=== PATIENT | male | born 1995 | race Caucasian/White ===

== ENCOUNTER 2018-03-14 10:33 | Inpatient (IN) | payer OTHER ==
[~2018-03-14] VITALS: Ht 167.6 cm; Wt 56.7 kg
--- NOTE | 2018-03-14 11:30 | NUR ---
Pre Assessment Pre Assessment completed in intake office on the first floor. Client is a 23 y/o male seeking treatment for his ETOH abuse. Pt. presents with some anxiety with an avoidant gaze but is pleasant upon approach. He appears clean and appropriately dressed. No signs of acute distress noted. Pt. stable to be admitted will complete assessment once on the unit.
--- NOTE | 2018-03-14 12:04 | NUR ---
Admission Assessment Pt. is a 23 y/o male being admitted for the medically managed withdrawal from ETOH. Pt. was also using cocaine concurrently with his alcohol abuse. Pt. is A/O X 4 and currently denies any SI, HI, VH, and AH. Pt. states that he usually drinks a 1.14L bottle of whiskey to himself throughout the day but will sometimes share that amount with a friend. Pt. states that he also uses cocaine along with his ETOH abuse but has not had any in 2 weeks. Current vital are BP: 117/73, P: 79, Tempt: 98.5, RR: 16, O2sat: 97%, and pt. is currently denying any pain. Substance Abuse Hx: ETOH (whiskey) 570ml-1140ml daily for the past 6 months. Patient first consumed alcohol at age 12. Last drink was around 0100 this morning. Pt. had 570 ml yesterday from 1700 to 0100 this morning. Longest period of Sobriety since age 12 has been 5 months while pt. was at boarding school from age [age]. Cocaine 1g daily for the past 6 months. Patient first consumed at age 18 and last consumed 0.3g approximately 2 weeks ago. Pt. states that he experienced a loss about 6 months ago that triggered his substance abuse. Pt. refused to discuss the specifics of his loss. Pt. states that hes never really attempted to get sober before but recently went to [facility] about a week ago as his first attempt at sobriety. Pt. was there for a total of 3 days, but left because he said that place was not a good fit for him. Since he left pt. went right back to drinking daily. [facility] Hx: [facility]: [facility]. Pt. was there for a total of 3 days. Pt. does not recall the medications given to him while at that facility. Pt. began drinking the day he was discharge from this facility. Pt. denies having any food or drug allergies. Pt. states that hes been diagnosed with depression, anxiety, and ADHD. Pt. denies having a PCP and/or a Psychiatrist. Pt. states that he does not have any home medication and that he does not take any medications at home. Pt. states that he wants to get sober for his mom and because he was recently convince that sobriety could be good for him. Pt. states that this will be his first real attempt at sobriety. He reports having had legal issues because of his alcohol abuse. Pt. reports having friends and family that will support his sobriety. Pt. states that his only potential cause for relapse is the loneliness of living alone in [place]. Pt. educated of admission process. Pt. educated on the units policies and procedures. Will continue to monitor pt.s behavior for safety.
[2018-03-14 13:54] LABS: *AMPHETAMINE, URINE NEGATIVE (NEGATIVE); *BARBITURATE, URINE NEGATIVE (NEGATIVE); *CANNABINOID, URINE POSITIVE (NEGATIVE); *COCCAINE, URINE NEGATIVE (NEGATIVE); *OPIATE, URINE NEGATIVE (NEGATIVE); *PHENCYCLIDINE SCREEN,URINE NEGATIVE (NEGATIVE)
[2018-03-14] MEDS ORDERED: DIAZEPAM 5 MG TABLET PO PRN (14:00)
[2018-03-14] MEDS ORDERED: MAGNESIUM HYDROXIDE 30 ML LIQUID UDC PO PRN (14:00)
[2018-03-14] MEDS ORDERED: DIAZEPAM 10 MG TABLET PO PRN ×2 (14:00)
[2018-03-14] MEDS ORDERED: ONDANSETRON ODT 4 MG TAB.RAPDIS SL PRN (14:00)
[2018-03-14] MEDS ORDERED: THIAMINE HCL 200 MG/2 ML VIAL IM ONE (14:00)
[2018-03-14] MEDS ORDERED: LORAZEPAM 2 MG/1 ML VIAL IM PRN (14:00)
[2018-03-14] MEDS ORDERED: 3 DAY TAPER OF VALIUM-SERENITY PROTOCOL PO PRN (14:00)
[2018-03-14] MEDS ORDERED: LOPERAMIDE HCL 2 MG CAPSULE PO PRN ×2 (14:00)
[2018-03-14] MEDS ORDERED: MAG HYDROX/AL HYDROX/SIMETH 30 ML LIQUID UDC PO PRN (14:00)
[2018-03-14] MEDS ORDERED: ONDANSETRON 4 MG/2 ML VIAL IM PRN (14:00)
[2018-03-14] MEDS ORDERED: diphenhydrAMINE 50 MG CAPSULE PO PRN (14:00)
[2018-03-14] MEDS: CLONIDINE HCL 0.1 MG TABLET PO PRN ×2 (14:52→23:44)
[2018-03-14] MEDS: DIAZEPAM 5 MG TABLET PO SCH ×3 (14:52→20:14)
--- NOTE | 2018-03-14 14:52 | NUR ---
PRN Medication Pt. in room complaining of elevated anxiety. PRN Clonidine medication given at this time. Will continue to monitor pt.'s behavior for safety and medication effectiveness.
--- NOTE | 2018-03-14 15:30 | NUR ---
PRN Re-Assessment Pt. in room and reports a decrease in symptoms. Medication effective. Will continue to monitor pt.'s behavior for safety.
[2018-03-14 16:00] VITALS: BP 127/86
--- NOTE | 2018-03-14 16:00 | NUR ---
CIWA Assessment CIWA of 11. Pt. in room presenting with anxiety, tremors, diaphoresis, agitation and restlessness. Pt. compliant with medication regiment and treatment plan. Will continue to monitor pt.'s behavior for safety.
--- NOTE | 2018-03-14 19:11 | NUR ---
START OF SHIFT NOTE: Endorsed patient is a 23 year old male presented for Alcohol (Whiskey) withdrawal, continues ordered 3 day Valium taper since 03/14/2018, which tolerated well. Withdrawal symptoms will be monitoring closely. Patient is alert and oriented x4: Person, Place, Situation, and Time, noted with anxious mood and flat affect, reports NKA, Regular Diet, is on Full Code, Seizure and Fall Precautions. PMH: Anxiety, Depression, and ADHD. Last CIWA=11 at 1600: Throughout the day shift patient experienced following withdrawal symptoms such as anxiety, agitation, depression, irritability, nervousness, nasal congestion, bilateral tremors, sweating, restlessness, fatigue, and yawning. PRN Clonidine 0.1 mg PO administrated for anxiety at 1452, and was effective per outgoing day shift nurse report. Patient remains compliant with treatment, medications, and diet regimen. VSWNL. Respirations are unlabored and even, Abdomen is soft and non-tender, Bowel Sounds are active in all four quadrants, Skin is intact, warm and dry to touch. Encouraged to intake fluids as tolerated. Encouraged to attend group activities. All needs met. Safe and calm environment provided. Safety measures in place: Call light within reach, bed in lowest position, and locked, padded bed rails up bilaterally. Will continue to monitor closely.
--- NOTE | 2018-03-14 19:11 | NUR ---
End of Shift Pt. is a 23 y/o male admitted for the medically managed withdrawal from ETOH. Pt. was also using cocaine concurrently with his alcohol abuse. Pt. was placed on a 3 day valium taper to manage his withdrawal symptoms. Pt. presented with anxiety, agitation, diaphoresis and tremors. PRN clonidine given to manage withdrawal symptoms. Safety measures in place. Will endorse pt.'s care to oncoming shift.
[2018-03-14 20:00] VITALS: BP 109/70
--- NOTE | 2018-03-14 20:00 | NUR ---
CIWA ASSESSMENT CIWA=13: Patient presented with withdrawal symptoms such as anxiety, agitation, depression, irritability, nervousness, bilateral tremors, barely sweating, restlessness, and fatigue. Scheduled and PRN medications will be administrated as ordered. Safe and calm environment provided. Encouraged to intake fluids as tolerated. All needs met. Safety measures in place: Call light within reach, bed in lowest position, and locked, padded bed rails up bilaterally. Will continue to monitor closely.
--- NOTE | 2018-03-14 20:14 | NUR ---
PRN BENADRYL PO ADMINISTRATION: PRN Benadryl 50 mg PO administrated for insomnia at 2013, as ordered. Patient tolerated well. Re-assessment will be done in one hour. Encouraged to intake fluids as tolerated. Safe and calm environment provided. All needs met. Safety measures in place: Call light within reach, bed is in lowest position, and locked, padded bedrails up bilaterally. Will continue to monitor.
--- NOTE | 2018-03-14 21:14 | NUR ---
PRN RE-ASSESSMENT Patient is sleeping. RR:15. Respirations are even and unlabored. PRN Benadryl 50 mg PO administrated for insomnia at 2014 were effective. Safe and calm environment provided. All needs met. Safety measures in place: Call light within reach, bed is in lowest position, and locked, padded bedrails up bilaterally. Will continue to monitor.
[2018-03-14 21:16] LABS: BASOPHILS # (AUTO) 0.1 K/uL (0.0-8.0); BASOPHILS % (AUTO) 1.2 % (0.0-2.0); EOSINOPHILS # (AUTO) 0.5 K/uL (0.0-0.7); EOSINOPHILS % (AUTO) 7.5 % (0.0-7.0); HEMATOCRIT 41.2 % (36.7-47.1); HEMOGLOBIN 14.3 g/dL (12.5-16.3); LYMPHOCYTES % (AUTO) 27.5 % (20.5-51.5); MEAN CORPUSCULAR HEMOGLOBIN 32.9 uug (23.8-33.4); MEAN CORPUSCULAR HGB CONC 35 g/dL (32.5-36.3); MEAN CORPUSCULAR VOLUME 94.4 fL (73.0-96.2); MONOCYTES # (AUTO) 0.7 K/uL (2.0-10.0); MONOCYTES % (AUTO) 10.4 % (0.0-11.0); NEUTROPHILS # (AUTO) 3.8 K/uL (1.8-8.9); NEUTROPHILS % (AUTO) 53.4 % (38.5-71.5); PLATELET COUNT (AUTO) 224 K/uL (152-348); RED BLOOD CELL COUNT(AUTO) 4.36 MIL/uL (4.06-5.63); WHITE BLOOD COUNT (AUTO) 7.1 K/uL (3.6-10.2)
[2018-03-14 21:26] LABS: ETHANOL < 3 MG/DL (0-0)
[2018-03-14 21:30] LABS: ALANINE AMINOTRANSFERASE 27 U/L (16-63); ALKALINE PHOSPHATASE 83 U/L (50-136); AMYLASE 107 U/L (25-115); ASPARTATE AMINOTRANSFERASE 21 U/L (15-37); BILIRUBIN,TOTAL 0.3 mg/dL (0.2-1.0); CARBON DIOXIDE 30 mmol/L (21-32); CHLORIDE 103 mmol/L (98-107); CREATININE 1.1 mg/dL (0.6-1.3); GLUCOSE 98 mg/dL (74-106); LIPASE 169 U/L (73-393); MAGNESIUM 1.9 mg/dL (1.8-2.4); UREA NITROGEN, BLOOD 14 mg/dL (7-18)
[2018-03-14 21:51] LABS: THYROID STIMULATING HORMONE 3.168 mIU/mL (0.358-3.740)
--- NOTE | 2018-03-14 23:08 | NUR ---
PRN VALIUM PO ADMINISTRATION: PRN Valium 10 mg PO administrated for CIWA=15 at 2308, as ordered. Patient tolerated well. Re-assessment will be done in one hour. Encouraged to intake fluids as tolerated. Safe and calm environment provided. All needs met. Safety measures in place: Call light within reach, bed is in lowest position, and locked, padded bedrails up bilaterally. Will continue to monitor.
--- NOTE | 2018-03-14 23:10 | NUR ---
PRN ZOFRAN SL ADMINISTRATION: PRN Zofran 4 mg SL administrated for nausea at 2310, as ordered. Patient tolerated well. Re-assessment will be done in one hour. Safe and calm environment provided. All needs met. Safety measures in place: Call light within reach, bed is in lowest position, and locked, padded bedrails up bilaterally. Will continue to monitor.
[2018-03-14] MEDS: IBUPROFEN 600 MG TABLET PO PRN (23:17)
--- NOTE | 2018-03-14 23:17 | NUR ---
PRN MOTRIN PO ADMINISTRATION: PRN Motrin 600 mg PO administrated for generalized body pain at 2317, as ordered. Patient tolerated well. Re-assessment will be done in one hour. Encouraged to intake fluids as tolerated. Safe and calm environment provided. All needs met. Safety measures in place: Call light within reach, bed is in lowest position, and locked, padded bedrails up bilaterally. Will continue to monitor.
--- NOTE | 2018-03-14 23:44 | NUR ---
PRN CLONIDINE PO ADMINISTRATION: PRN Clonidine 0.1 mg PO administrated for agitation at 2344, as ordered. Patient tolerated well. Re-assessment will be done in one hour. Encouraged to intake fluids as tolerated. Safe and calm environment provided. All needs met. Safety measures in place: Call light within reach, bed is in lowest position, and locked, padded bedrails up bilaterally. Will continue to monitor.
[2018-03-15] VITALS: BP 119/60
--- NOTE | 2018-03-15 | NUR ---
CIWA ASSESSMENT CIWA=14: Patient experienced anxiety, agitation, emotional liability, irritability, nervousness, flashed face, myalgia, generalized body aches, mild nausea, headache, abdominal cramps, sweating, bilateral tremors, fatigue, and restlessness. PRN medications will be administrated, as ordered. Safe and calm environment provided. All needs met. Safety measures in place: Call light within reach, bed is in lowest position, and locked, padded bedrails up x2. Will continue to monitor.
--- NOTE | 2018-03-15 00:08 | NUR ---
PRN RE-ASSESSMENT CIWA=11. Patient verbalized, " I am feeling less anxious: Valium reduced my anxiety ". PRN Valium 10 mg PO administrated for CIWA=15 at 2308 was effective. Safe and calm environment provided. All needs met. Safety measures in place: Call light within reach, bed is in lowest position, and locked, padded bedrails up bilaterally. Will continue to monitor.
--- NOTE | 2018-03-15 00:10 | NUR ---
PRN RE-ASSESSMENT Patient reports, " My nausea gone ". PRN Zofran 4 mg SL administrated for nausea at 2310 was effective. Safe and calm environment provided. All needs met. Safety measures in place: Call light within reach, bed is in lowest position, and locked, padded bedrails up bilaterally. Will continue to monitor.
--- NOTE | 2018-03-15 00:17 | NUR ---
PRN RE-ASSESSMENT Patient reports, " My pain level decreased from "8/10" to "4/10 PRN Motrin 600 mg PO administrated for generalized body pain at 2317 was effective. Safe and calm environment provided. All needs met. Safety measures in place: Call light within reach, bed is in lowest position, and locked, padded bedrails up bilaterally. Will continue to monitor.
--- NOTE | 2018-03-15 00:44 | NUR ---
PRN RE-ASSESSMENT Patient is sleeping. RR:15. PRN Clonidine 0.1 mg PO administrated for agitation at 2344 was effective. Safe and calm environment provided. All needs met. Safety measures in place: Call light within reach, bed is in lowest position, and locked, padded bedrails up bilaterally. Will continue to monitor.
--- NOTE | 2018-03-15 04:00 | NUR ---
VS REFUSED, CIWA DEFERRED VS refused and CIWA deferred at 0400 due patient sleeping. Respirations are unlabored and even. RR:14. Assessment will be done and CIWA scored while patient will awake. Safe and calm environment provided. All needs met. Safety measures in place: Call light within reach, bed is in lowest position, and locked, padded bedrails up bilaterally. Will continue to monitor.
--- NOTE | 2018-03-15 07:30 | NUR ---
Start of Shift Pt. is 23 y/o male admitted for the medically managed withdrawal from ETOH. Pt. was also concurrently using cocaine alongside his alcohol abuse. Pt. was placed on a 3 day valium taper to manage withdrawal symptoms. Endorse from previous shift pt. presented with anxiety, diaphoresis, agitation, restlessness, nausea, body aches, and tremors. Pt. received PRN Valium, Benadryl, Zofran, Motrin, and Clonidine to help manage withdrawal symptoms. Received pt. in room. Pt. in bed with eyes closed. Pt.s room is cluttered with open food containers, personal items, and linens. No signs of SOB noted. Safety measures in place. Will continue to monitor pt.s behavior for safety.
--- NOTE | 2018-03-15 07:31 | NUR ---
END OF SHIFT NOTE: This report given for patient, a 23 year old male, presented for Alcohol (Whiskey) withdrawal, continues ordered 3 day Valium taper since 03/14/2018, which tolerated well. Withdrawal symptoms will be monitoring closely. Patient is alert and oriented x4, cooperative, with stable gate, anxious mood and liable affect. CIWA=13 at 2000. The most recent CIWA=14 at 0000: Patient presented with anxiety, agitation, emotional liability, irritability, nervousness, flashed face, myalgia, generalized body aches, mild nausea, headache, abdominal cramps, sweating, bilateral tremors, fatigue, and restlessness PRN Benadryl 50 mg PO administrated for insomnia at 2013, PRN Valium 10 mg PO administrated for 2307, PRN Zofran 4 mg SL administrated for nausea at 231, PRN Motrin 600 mg PO administrated for generalized body pain at 2317, PRN Clonidine 0.1 mg PO administrated for agitation at 2344, and were effective. Patient remains compliant with treatment, medications, and diet regimen. Respirations are unlabored and even. Skin is intact, warm and dry to touch Encouraged patient to verbalized his feelings. Encouraged to intake fluids as tolerated. Encouraged to attend group activities. Patient slept for 5 hours, intake 355 ml, voided x1. Safe and calm environment provided. All needs met. Safety measures in place: Call light within reach, bed is in lowest position, and locked, padded bedrails up bilaterally. Endorsed to day shift nurse.
[2018-03-15 08:00] VITALS: BP 84/46
--- NOTE | 2018-03-15 08:00 | NUR ---
CIWA Assessment CIWA of 12. Pt. in room presenting with anxiety, stomach cramps, anxiety, diaphoresis and agitation. Will give medication regiment as ordered. Will continue to monitor pt.'s behavior for safety.
[2018-03-15] MEDS ORDERED: TUBERCULIN,PURIF.PROT.DERIV. 5 TU/0.1 ML TEST ID ONE (09:00)
[2018-03-15] MEDS: MULTIVITAMINS,THERAPEUTIC TABLET PO SCH (09:07)
[2018-03-15] MEDS: FOLIC ACID 1 MG TABLET PO SCH (09:07)
[2018-03-15] MEDS: HYDROXYZINE PAMOATE 25 MG CAPSULE PO PRN ×2 (09:07→22:43)
[2018-03-15] MEDS: THIAMINE HCL 100 MG TABLET PO SCH (09:07)
[2018-03-15] MEDS: DIAZEPAM 5 MG TABLET PO SCH ×2 (09:07→21:14)
[2018-03-15] MEDS: DICYCLOMINE HCL 20 MG TABLET PO PRN ×2 (09:08→21:15)
--- NOTE | 2018-03-15 09:08 | NUR ---
PRN Medication Pt. in room complaining of increased anxiety and stomach cramps. PRN Bentyl and Vistaril given at this time manage withdrawal symptoms. Will continue to monitor pt.'s behavior for safety and medication effectiveness.
--- NOTE | 2018-03-15 10:30 | NUR ---
PRN Re-Assessment Pt. reports a decrease in symptoms. Medication effective. Will continue to monitor pt.'s behavior for safety.
[2018-03-15 12:00] VITALS: BP 98/47
--- NOTE | 2018-03-15 12:00 | NUR ---
CIWA Assessment CIWA of 11. Pt. in room presenting with anxiety, anxiety, diaphoresis and agitation. Pt. compliant with medication regiment and treatment plan. Will continue to monitor pt.'s behavior for safety.
--- NOTE | 2018-03-15 13:59 | NUR ---
therapist prompted client to attend group therapy.
[2018-03-15] MEDS ORDERED: TRAZODONE 50 MG TABLET PO PRN (14:00)
[2018-03-15] MEDS: GABAPENTIN 300 MG CAPSULE PO SCH ×2 (14:10→17:00)
[2018-03-15] MEDS: CLONIDINE HCL 0.1 MG TABLET PO PRN ×2 (14:10→21:15)
--- NOTE | 2018-03-15 14:10 | NUR ---
PRN Medication Pt. in room complaining of increased anxiety. PRN Clonidine given at this time to manage anxiety. Will continue to monitor pt.'s behavior for safety.
[2018-03-15] MEDS: ERYTHROMYCIN 0.5% OPHT OINT 3.5 GM TUBE LEFTEYE SCH (14:35)
--- NOTE | 2018-03-15 15:00 | NUR ---
PRN Re-Assessment Pt. reports a decrease in anxiety. Medication effective. Will continue to monitor pt.'s behavior for safety.
[2018-03-15 16:00] VITALS: BP 119/63
--- NOTE | 2018-03-15 16:00 | NUR ---
CIWA Assessment CIWA of 10. Pt. in room presenting with anxiety, anxiety, diaphoresis and agitation. Pt. compliant with medication regiment and treatment plan. Will continue to monitor pt.'s behavior for safety.
[2018-03-15] MEDS: IBUPROFEN 600 MG TABLET PO PRN (18:15)
--- NOTE | 2018-03-15 18:15 | NUR ---
PRN Medication Pt. approached nursing station and reports 6/10 left eye pain. PRN Motrin given at this time to mange pain. Will continue to monitor pt.'s behavior for safety and medication effectiveness.
--- NOTE | 2018-03-15 18:52 | NUR ---
PRN Re-Assessment Pt. reports a decrease in pain. Medication effective. Will continue to monitor pt.'s behavior for safety.
--- NOTE | 2018-03-15 19:02 | NUR ---
START OF SHIFT NOTE: This report received for patient, is a 23 year old male, presented for alcohol (Whiskey) withdrawal, and continues ordered 3 day Valium Taper, which tolerated well. Last CIWA=10 at 1600: The patient noted with withdrawal symptoms such as anxiety, agitation, depression, fatigue, irritability, generalized body aches, abdominal spasm, myalgia, nervousness, restlessness, bilateral tremors, and sweating. Withdrawal symptoms will be closely monitoring. PRN Bentyl 20 mg PO administered for abdominal spasm at 0908, PRN Vistaril 50 mg Po administered for anxiety at 0907, PRN Clonidine 0.1 mg PO administered for anxiety and agitation at 1410, PRN Motrin 600 mg PO administered for generalized body pain at 1815, and were effective, per day shift nurse report. Patient remains compliant with treatment, medications, and diet regimen. Respirations are even and unlabored. Skin intact, warm, and dry to touch. Encouraged to fluids intake as tolerated. Encouraged to attend group activities. All needs met. Safety measures in place: Call light within reach, bed is locked, and in the lowest position, and padded bedrails up x2. Safe and calm environment provided. Endorsed by day shift nurse. Will continue to monitor closely.
--- NOTE | 2018-03-15 19:02 | NUR ---
End of Shift Pt. is 23 y/o male admitted for the medically managed withdrawal from ETOH. Pt. was also concurrently using cocaine alongside his alcohol abuse. Pt. was placed on a 3 day valium taper to manage withdrawal symptoms. Throughout shift pt. presented with anxiety, diaphoresis, agitation, restlessness, left eye pain, body aches, and tremors. Pt. received PRN Bentyl, Vistaril, Motrin, and Clonidine to help manage withdrawal symptoms. After further assessment by pt. was ordered an ophthalmic antibiotic for possible infection after pt. reported left eye pain and irritation. No redness, irritation, swelling, and/or foreign body found by this sba underwriter. Safety measures in place. Will endorse pt.s care to oncoming shift.
[2018-03-15 20:00] VITALS: BP 118/69
--- NOTE | 2018-03-15 20:00 | NUR ---
CIWA ASSESSMENT CIWA=10: The patient presented with withdrawal symptoms such as anxiety, agitation, depression, fatigue, irritability, spasm, nervousness, restlessness, bilateral tremors, and sweating. Safe and calm environment provided. Encouraged to intake fluids as tolerated. All needs met. Safety measures in place: Call light within reach, bed in lowest position, and locked, padded bed rails up bilaterally. Will continue to monitor closely. Addendum: 03/16/18 at 0544 by MARANDA SILVA RN abdominal spasm
--- NOTE | 2018-03-15 21:15 | NUR ---
PRN BENTYL PO, PRN CLONIDINE PO, PRN TRAZODONE PO, ADMINISTRATION: PRN Bentyl 20 mg PO administered for abdominal spasm at 2114, PRN Clonidine 0.1 mg PO administered for anxiety and agitation at 2114, and PRN Trazodone 50 mg PO administered for insomnia at 2114, as ordered. Patient tolerated well. Re-assessment will be done in one hour. Encouraged to intake fluids as tolerated. Safe and calm environment provided. All needs met. Safety measures in place: Call light within reach, bed is in lowest position, and locked, padded bedrails up bilaterally. Will continue to monitor.
--- NOTE | 2018-03-15 22:15 | NUR ---
PRN RE-ASSESSMENT Patient verbalized, "My abdominal spasm gone, but I can't sleeping, my anxiety did not relief". PRN Bentyl 20 mg PO administered for abdominal spasm at 2114 was effective, PRN Clonidine 0.1 mg PO administered for anxiety and agitation at 2114, and PRN Trazodone 50 mg PO administered for insomnia at 2114 were not effective. Safe and calm environment provided. All needs met. Safety measures in place: Call light within reach, bed is in lowest position, and locked, padded bedrails up bilaterally. Will continue to monitor.
--- NOTE | 2018-03-15 22:43 | NUR ---
PRN VISTARILPO ADMINISTRATION: PRN Vistaril 50 mg PO administrated for anxiety at 2243, as ordered. Patient tolerated well. Re-assessment will be done in one hour. Encouraged to intake fluids as tolerated. Safe and calm environment provided. All needs met. Safety measures in place: Call light within reach, bed is in lowest position, and locked, padded bedrails up bilaterally. Will continue to monitor.
--- NOTE | 2018-03-15 23:43 | NUR ---
PRN RE-ASSESSMENT Patient is sleeping. RR:14. Respirations are even and unlabored PRN Vistaril 50 mg PO administered for anxiety at 2243 was effective. Safe and calm environment provided. All needs met. Safety measures in place: Call light within reach, bed is in lowest position, and locked, padded bedrails up bilaterally. Will continue to monitor.
[2018-03-16] MEDS: ERYTHROMYCIN 0.5% OPHT OINT 3.5 GM TUBE LEFTEYE SCH ×4 (06:00→17:24)
[2018-03-16 06:06] LABS: HEPATITIS B SURFACE AG Negative (Negative)
--- NOTE | 2018-03-16 06:56 | NUR ---
START OF SHIFT NOTE: Endorsed patient, a 23 year old male, continues ordered for medical supervised withdrawal from ETOH (Whiskey) 3 day Valium Taper, which tolerated well. Withdrawal symptoms was closely monitored. The patient noted with anxious mood and liable affect. The most recent CIWA=10 at 1999: The patient experienced following withdrawal symptoms such as anxiety, agitation, depression, fatigue, irritability, abdominal spasm, nervousness, myalgia, restlessness, bilateral tremors, and sweating. PRN Bentyl 20 mg PO administered for abdominal spasm at 2114 was effective. PRN Clonidine 0.1 mg PO administered for anxiety and agitation at 2114, and PRN Trazodone 50 mg PO administered for insomnia at 2114 were not effective. PRN Vistaril 50 mg PO administered for anxiety at 2242 was effective. Patient remains compliant with treatment, medications, and diet regimen. VSWNL. Respirations are even and unlabored. Skin is intact, warm, and dry to touch. Encouraged patient to verbalized her feelings, and reassuring provided. Encouraged to intake fluids as tolerated. Encouraged to attend group activities. Patient slept for 6 hours, intake 400 ml, voided x2. Safe and calm environment provided. All needs met. Safety measures in place: Call light within reach, bed is in lowest position, and locked, padded bedrails up bilaterally. Endorsed to day shift nurse. Addendum: 03/16/18 at 0704 by MARANDA SILVA RN error: END SHIFT NOTE
--- NOTE | 2018-03-16 07:20 | NUR ---
Start Of Shift Patient is a 23yr old male who was admitted to [facility] on 03/14/18 for a medically supervised withdrawal from ETOH ( Whisky) and also stated he was abusing Cocaine. He has been placed on a 3 day Valium taper and this is day 3. PRN medications given on PM shift : Bentyl, Clonidine, Trazodone and Vistaril, he slept for 6+ hours and last CIWA was 10. Currently he is in bed asleep at this time, breathing even and unlabored, side rails up x 2 and call light within reach. Continue to follow MD plan of care and offer support and encouragement.
[2018-03-16 08:00] VITALS: BP 97/51
[2018-03-16] MEDS ORDERED: DIAZEPAM 5 MG TABLET PO SCH (09:00)
--- NOTE | 2018-03-16 09:00 | NUR ---
CIWA 10 Pt. presents with anxiety, anxiety, diaphoresis and agitation. Schedule Valium 5 mg PO given
[2018-03-16] MEDS: MULTIVITAMINS,THERAPEUTIC TABLET PO SCH (09:05)
[2018-03-16] MEDS: FOLIC ACID 1 MG TABLET PO SCH (09:05)
[2018-03-16] MEDS: THIAMINE HCL 100 MG TABLET PO SCH (09:05)
[2018-03-16] MEDS: GABAPENTIN 300 MG CAPSULE PO SCH ×3 (09:05→17:22)
[2018-03-16] MEDS: HYDROXYZINE PAMOATE 25 MG CAPSULE PO PRN (11:41)
[2018-03-16] MEDS: IBUPROFEN 600 MG TABLET PO PRN (11:41)
--- NOTE | 2018-03-16 11:45 | NUR ---
PRN Motrin 600mg PO given for headache Vistaril 50mg PO given for increased anxiety/agitation
[2018-03-16 12:00] VITALS: BP 99/57
--- NOTE | 2018-03-16 12:21 | NUR ---
ELLAWA 14 Patient presents with headache, increased anxiety, irritability, decreased appetite and restlessness PRN Motrin 600mg PO and Vistaril 50mg PO given along with scheduled 300mg PO gabapentin
--- NOTE | 2018-03-16 12:45 | NUR ---
PRN Reassess Patient states headache pain is now 2/10 ( was 6/10) Anxiety has decreased, Vistaril 50mg PO effective
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
[2018-03-16] MEDS: QUETIAPINE FUMARATE 100 MG TABLET PO PRN (14:52)
--- NOTE | 2018-03-16 14:55 | NUR ---
PRN Seroquel Seroquel 100mg PO PRN given for agitation and increased irritability per MD order.
[2018-03-16] MEDS ORDERED: HYDR-3895 PO (15:52)
[2018-03-16] MEDS ORDERED: IBUP-1955 PO (15:52)
[2018-03-16] MEDS ORDERED: ERYT3.5O24 LEFTEYE (15:52)
[2018-03-16] MEDS ORDERED: GABA-534 PO (15:52)
[2018-03-16] MEDS ORDERED: QUET100T PO (15:52)
[2018-03-16] MEDS ORDERED: CLON0.1T14 PO (15:52)
[2018-03-16] MEDS ORDERED: TRAZ-213 PO (15:52)
[2018-03-16] MEDS ORDERED: DICY20TA28 PO (15:52)
--- NOTE | 2018-03-16 15:55 | NUR ---
PRN Reassess Patient has calmed down, he is in group at this time and states he feels better and apologizes for his behavior.
[2018-03-16 16:00] VITALS: BP 140/88
--- NOTE | 2018-03-16 16:15 | NUR ---
CIWA 14 Patient presents with headache, increased anxiety, irritability, agitation, decreased appetite and restlessness PRN Seroquel 100mg PO PRN was given @ 1500 with positive results for agitation.
[2018-03-16] MEDS: CLONIDINE HCL 0.1 MG TABLET PO PRN (17:24)
--- NOTE | 2018-03-16 17:25 | NUR ---
PRN Clonidine 0.1mg PO given for increased anxiety/irritability will reassess
--- NOTE | 2018-03-16 18:25 | NUR ---
PRN Reassess patient appears less anxious and states he feels better
--- NOTE | 2018-03-16 18:49 | NUR ---
End Of Shift Patient is a 23yr old male who was admitted to [facility] on 03/14/18 for a medically supervised withdrawal from ETOH ( Whisky) and also stated he was abusing Cocaine. He has completed a 3 day Valium taper and will be discharged in the AM 03/17/18 to " [facility]. PRN medications given on this shift: Motrin, Vistaril, Clonidine and Seroquel. His last CIWA was 14 @ 1600. He had a fluid intake of 2814 ML, 3 Voids and 0 BM. His withdrawal symptoms have presented as emotional volatility, increased anxiety, agitation, lethargy, restlessness and headaches. He attended groups today and is interacting with his peers. Continue to follow MD plan of care and offer support. Endorsed to night
--- NOTE | 2018-03-16 18:52 | NUR ---
START OF SHIFT NOTE: Endorsed patient, a 23 old male, completed ordered 3 Day Valium Taper for ETOH (Whiskey) withdrawal, which tolerated well. The patient remains compliant with treatment, medications, and diet regimen. Upon endorsement, patient is alert and oriented x 4, noted with anxious mood and labile affect. Latest CIWA=14 at 1600: During the day patient continues experienced moderate withdrawal symptoms such as anxiety, agitation, irritability, nervousness, restlessness, bilateral tremors, generalized body pain, sweating, mild dizzy/lightheaded, and fatigue. 1:1 sitter for safety was at bedside, per MD's order till 1600. PRN Motrin 600 mg PO administered for pain at 1141, PRN Vistaril 50 mg PO administered for anxiety at 1141, PRN Seroquel 100 mg PO administered for agitation at 1452, PRN Clonidine 0.1 mg PO administered for anxiety and agitation at 1724, and were effective, per outgoing day shift nurse. Respirations are even and unlabored. Abdomen is soft and non-tender, bowel sounds are active in all four quadrants. Skin remains intact, warm, and dry to touch. Educated for relaxation techniques, and expressing his feelings. Patient returned his knowledge back by verbalized understanding. Encouraged to intake fluids as tolerated. Encouraged to attend group activities. The patient scheduled for discharging to "[facility]" tomorrow at 0930. Safe and calm environment provided. All needs met. Safety measures in place; Call light within reach, bed in lowest position, and locked, padded bedrails up x2. Endorsed by day shift nurse. Will continues to monitor closely.
[2018-03-16 20:00] VITALS: BP 105/59
--- NOTE | 2018-03-16 20:00 | NUR ---
CIWA ASSESSMENT CIWA=13 at 2000: Patient presented with anxiety, agitation, depression, irritability, nervousness, bilateral tremors, and restlessness. Educated for relaxation techniques, and expressing his feelings. Patient returned his knowledge back by verbalized understanding. Encouraged to intake fluids as tolerated. Encouraged to attend group activities. Safe and calm environment provided. All needs met. Safety measures in place: Call light within reach, bed in lowest position, and locked, padded bedrails up x2. Will continues to monitor closely.
--- NOTE | 2018-03-17 | NUR ---
CIWA ASSESSMENT CIWA=13 at 0000: The patient experienced anxiety, agitation, depression, irritability, nervousness, bilateral tremors, and restlessness. Safe and calm environment provided. All needs met. Safety measures in place: Call light within reach, bed in lowest position, and locked, padded bedrails up x2. Will continues to monitor closely.
[2018-03-17] MEDS: QUETIAPINE FUMARATE 100 MG TABLET PO PRN (01:53)
--- NOTE | 2018-03-17 01:53 | NUR ---
PRN SEROQUEL PO ADMINISTRATION: PRN Seroquel 100 mg PO administrated for agitation at 0153, as ordered. Patient tolerated well. Re-assessment will be done in one hour. Encouraged to intake fluids as tolerated. Safe and calm environment provided. All needs met. Safety measures in place: Call light within reach, bed is in lowest position, and locked, padded bedrails up bilaterally. Will continue to monitor.
--- NOTE | 2018-03-17 02:53 | NUR ---
PRN RE-ASSESSMENT Patient is sleeping. Respirations are even and unlabored. PRN Seroquel 100 mg PO administrated for agitation at 0153 was effective. Safe and calm environment provided. All needs met. Safety measures in place: Call light within reach, bed is in lowest position, and locked, padded bedrails up bilaterally. Will continue to monitor.
--- NOTE | 2018-03-17 04:00 | NUR ---
VS REFUSED, CIWA DEFERRED VS refused and CIWA deferred at 0400 due patient sleeping. Assessment will be done and CIWA scored while patient will awake. Safe and calm environment provided. All needs met. Safety measures in place: Call light within reach, bed is in lowest position, and locked, padded bedrails up bilaterally. Will continue to monitor.
[2018-03-17] MEDS: ERYTHROMYCIN 0.5% OPHT OINT 3.5 GM TUBE LEFTEYE SCH ×2 (06:00)
--- NOTE | 2018-03-17 07:03 | NUR ---
END OF SHIFT NOTE: Report given for patient, a 23 year old male, presented for Alcohol (Whiskey) withdrawal, and completed ordered 3 day Valium taper. Patient tolerated well, and remains compliant with treatment, medications, and diet regimen. Withdrawal symptoms was monitored closely. The patient scheduled for discharging to "[facility]" today at 0930. CIWA=13 at 2000. The most recent CIWA=13 at 0000: Patient presented with anxious mood and liable affect, noted disheveled, unkempt, and with uncombed hair, and experienced anxiety, agitation, emotional liability, irritability, nervousness, flashed face, myalgia, generalized body aches, mild nausea, headache, abdominal cramps, sweating, bilateral tremors, fatigue, and restlessness. PRN Seroquel 100 mg PO administrated for agitation at 0153, and was effective. Respirations are unlabored and even. Skin is intact, warm and dry to touch. Encouraged to intake fluids as tolerated. Encouraged to attend group activities. Patient slept for 9 hours, intake 855 ml, voided x1. Safe and calm environment provided. All needs met. Safety measures in place: Call light within reach, bed is in lowest position, and locked, padded bedrails up bilaterally. Endorsed to day shift nurse.
[2018-03-17 08:00] VITALS: BP 91/59
--- NOTE | 2018-03-17 08:00 | NUR ---
Start of Shift Notes/CIWA Assessment: Received report from night nurse. Patient is a 23 year old male admitted for ETOH withdrawal who was placed on a 3-day Valium taper as ordered. No adverse reactions noted. Per night report, patient was given Seroquel during the night. Last CIWA 13. Received patient in his room. Alert and oriented x 4. Appears disheveled. Room is messy with garbage noted all over the floor. Encouraged patient to maintain his personal hygiene and space. He appears anxious, worried and complains of fatigue and generalized discomfort. CIWA 9. Patient will be discharging today to [facility]. Educated patient on his current plan of care regarding the discharge process. Verbalized good understanding of all teachings. All needs met and attended. Will continue to monitor closely.
[2018-03-17] MEDS: FOLIC ACID 1 MG TABLET PO SCH (08:20)
[2018-03-17] MEDS: GABAPENTIN 300 MG CAPSULE PO SCH (08:20)
[2018-03-17] MEDS: MULTIVITAMINS,THERAPEUTIC TABLET PO SCH (08:21)
[2018-03-17] MEDS: THIAMINE HCL 100 MG TABLET PO SCH (08:21)
--- NOTE | 2018-03-17 09:44 | NUR ---
Discharged: Patient's VS stable. CIWA 9. Denies S/I or H/I noted. No AV hallucinations noted. Patient education provided regarding patient's discharge instructions. All questions answered. Returned all belongings to the patient at this time. Escorted off the unit by PALS NURSE. Picked up by [facility] to be transported to [facility]
== END 2018-03-17 09:44 | disposition other institution (70) | DRG 895 ==
LOC: SRC 11:14
PROVIDERS: ADMIT Family Medicine Addiction Medicine; ATTEND Family Medicine Addiction Medicine
PROC: HZ2ZZZZ Detoxification Services for Substance Abuse Treatment (ICD-10-PCS; principal; 2018-03-14)
PROC: HZ41ZZZ Group Counseling for Substance Abuse Treatment, Behavioral (ICD-10-PCS; principal; 2018-03-14)
PROC: HZ31ZZZ Individual Counseling for Substance Abuse Treatment, Behavioral (ICD-10-PCS; 2018-03-15)
DX: F10.230 Alcohol dependence with withdrawal, uncomplicated (principal); F14.10 Cocaine abuse, uncomplicated; Y90.9 Presence of alcohol in blood, level not specified; F41.1 Generalized anxiety disorder; F43.10 Post-traumatic stress disorder, unspecified; Z81.8 Family history of other mental and behavioral disorders; F17.210 Nicotine dependence, cigarettes, uncomplicated; H00.014 Hordeolum externum left upper eyelid
CPT/HCPCS: 36415; 70030-TC; 80307; 80346; 80349; 83690; 83735; 84443; 85025; 86592; 86705; 86803; 87340; 87806; A4663; G0480; J3411; Q0162; Q0163